=== PATIENT | female | born 1955 | race Caucasian/White ===

== ENCOUNTER 2019-08-27 18:06 | Emergency (ER) | payer OTHER, MEDICARE ==
[2019-08-27] MEDS ORDERED: Oseltamivir 75 MG Cap ONE (18:20)
[2019-08-27 18:55] VITALS: BP 142/71; PULSE 96
--- NOTE | 2019-08-27 22:01 | ER ---
HISTORY OF PRESENT ILLNESS: A 63-year-old lady here with complaints of not feeling well since late Monday. She has been running a fever. She has been chilled. She has a sore throat, generalized achiness, and she has a congested-sounding cough which has been dry. The patient denies any problems with shortness of breath, wheezing, or GI symptoms. She has been exposed to influenza just a couple of days before she got the symptoms. OBJECTIVE: GENERAL APPEARANCE: The patient is awake and alert. She has an occasional cough. No obvious respiratory distress. VITAL SIGNS: Reviewed. She is afebrile. HEENT: Ears and TMs are normal. Nares are patent. Oral mucous membranes are moist. Posterior pharynx shows mild drainage. No redness. NECK: Supple. LUNGS: Clear. SKIN: Warm and dry. DIAGNOSIS: Flu syndrome with known exposure to influenza. TREATMENT PLAN: I will start the patient on Tamiflu. Conservative measures were discussed. She is to go home rest, use Tylenol or ibuprofen as needed, and use [id number] cough medication as needed. Fluid should be pushed using small frequent drinks and followup is p.r.n. if her condition should get worse. Again, we will start the patient on Tamiflu for 5 days as well. CRS/MODL /[id number]
== END 2019-08-27 18:36 | disposition home or self-care (01) ==
LOC: LB.ED 18:06
DX: J11.1 Influenza due to unidentified influenza virus with other respiratory manifestations (principal)
CPT/HCPCS: 99283; A9270